=== PATIENT | male | born 1980 | race African-American/Black ===

== ENCOUNTER 2018-01-11 23:48 | Emergency (ER) | payer OTHER, SELFPAY ==
[2018-01-12] MEDS ORDERED: Ibuprofen 800 MG TAB ONE (00:05)
== END 2018-01-12 00:09 | disposition home or self-care (01) ==
LOC: ERS 23:48
DX: K04.7 Periapical abscess without sinus (principal); F17.210 Nicotine dependence, cigarettes, uncomplicated
CPT/HCPCS: 99283